=== PATIENT | female | born 2000 | race African-American/Black ===

== ENCOUNTER 2019-08-30 18:00 | Emergency (ER) | payer OTHER ==
[2019-08-30 18:12] VITALS: BP 104/67
--- NOTE | 2019-08-30 18:26 | ED Physician Documentation ---
PD HPI LOWER EXT INJURY - Stated complaint Stated Complaint: LT KNEE INJURY - Chief complaint Chief Complaint: Trauma Ext - History obtained from History obtained from: Patient - History of Present Illness PD HPI LOW EXT INJURY LOCATION: Left (19-year-old woman with history of left knee patellar dislocation. Last night she came off a few steps and landed and heard a pop in her left knee. She has no pain at rest but has persistent posterior and lateral knee pain with walking. No other injuries. No possibility of .) Review of Systems Constitutional: reports: Reviewed and negative Nose: reports: Reviewed and negative Throat: reports: Reviewed and negative Cardiac: reports: Reviewed and negative Respiratory: reports: Reviewed and negative PD PAST MEDICAL HISTORY - Present Medications Home Medications: Ambulatory Orders Medication Instructions Recorded Confirmed Ibuprofen [Motrin] 800 mg PO Q8H PRN #30 tablet 08/30/19 - Allergies Allergies/Adverse Reactions: Allergies Allergy/AdvReac Type Severity Reaction Status Date / Time No Known Drug Allergies Allergy Verified 08/30/19 18:09 PD ED PE NORMAL - Vitals Vital signs reviewed: Yes - General General: Alert and oriented X 3, No acute distress - Extremities Extremities: Other (Left knee has a tiny effusion, no bony tenderness, but she does have pain with grind testing on the lateral side. ACL, PCL, LCL, MCL joshua ting is nontender and without laxity.) - Neuro Neuro: Alert and oriented X 3, Normal speech - Psych Psych: Normal mood, Normal affect Results - Vitals Vitals: Vital Signs - 24 hr 08/30/19 18:09 Temperature 37 C Heart Rate 78 Respiratory 17 Rate Blood Pressure 104/67 O2 Saturation 100 Oxygen O2 Source Room air PD MEDICAL DECISION MAKING - ED course ED course: 19-year-old woman, isolated left knee injury from a minor mechanism, seems consistent with either a strain or potentially a little meniscus injury. X-rays were negative. She was placed in a knee immobilizer and advised on follow-up. Departure - Departure Disposition: 01 Home, Self Care Clinical Impression: Left knee sprain Qualifiers: Encounter type: initial encounter Involved ligament of knee: unspecified ligament Qualified Code(s): S83.92XA - Sprain of unspecified site of left knee, initial encounter Condition: Good Record reviewed to determine appropriate education?: Yes Instructions: ED Meniscal Injury Knee Poss Prescriptions: Ibuprofen [Motrin] 800 mg PO Q8H PRN #30 tablet PRN Reason: PAIN &/OR FEVER Comments: Your x-ray is normal. As discussed your examination could be consistent with a mild injury of your meniscus. Most of these heal with just time. Wear the splint when you are up and around, you do not need to wear it in bed or while showering. 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 Forms: Activity restrictions Discharge Date/Time: 08/30/19 19:00
--- NOTE | 2019-08-30 18:58 | XRAY Report ---
Reason: knee injury Procedure Date: 08/30/2019 Accession Number: [id number] / [id number] Procedure: XR - Knee 4 View LT CPT Code: Final Report FULL RESULT: EXAM: LEFT KNEE RADIOGRAPHY EXAM DATE: 08/30/2019 06:28 PM. CLINICAL HISTORY: Fall. Left knee pain. Left knee injury. COMPARISON: None. TECHNIQUE: 4 views. FINDINGS: Bones: Normal. No fractures or bone lesions. Joints: Possible small left knee effusion. No dislocation. Soft Tissues: No radiopaque foreign bodies. IMPRESSION: 1. No acute osseous abnormalities. RADIA
== END 2019-08-30 19:00 | disposition home or self-care (01) ==
LOC: ED 18:00
DX: S83.92XA Sprain of unspecified site of left knee, initial encounter (principal); X50.1XXA Overexertion from prolonged static or awkward postures, initial encounter; Y93.01 Activity, walking, marching and hiking
CPT/HCPCS: 99283

== ENCOUNTER 2019-12-01 22:25 | Emergency (ER) | payer OTHER ==
[2019-12-01 23:02] LABS: BILIRUBIN,URINE NEGATIVE (NEGATIVE); GLUCOSE, URINE (UA) NEGATIVE (NEGATIVE); KETONES,URINE (UA) TRACE mg/dL (NEGATIVE); LEUKOCYTE ESTERASE, URINE NEGATIVE (NEGATIVE); NITRITE,URINE NEGATIVE (NEGATIVE); OCCULT BLOOD,URINE NEGATIVE (NEGATIVE); PROTEIN,URINE NEGATIVE (NEGATIVE); UROBILINOGEN,URINE 0.2 (NORMAL) E.U./dL (NORMAL)
[2019-12-01 23:03] LABS: CLARITY,URINE CLEAR (CLEAR)
[2019-12-01 23:08] LABS: BACTERIA,URINE Rare /HPF (None Seen); RBC,URINE 0-5 /HPF (0-5); SQUAMOUS EPITHELIAL CELL,UR MANY Squamous (<= Few)
--- NOTE | 2019-12-01 23:26 | ED Physician Documentation ---
PD HPI ABD PAIN - Stated complaint Stated Complaint: ABD PX/NAUSEA - Chief complaint Chief Complaint: Abd Pain - History obtained from History obtained from: Patient - History of Present Illness Timing - onset: How many days ago (3) Timing - duration: Days (3) Timing - details: Gradual onset, Still present, Constant Pain level now: 4 Quality: Pain Location: All over / everywhere Radiation: No: Chest, , Lower back, Left flank, Left shoulder, Right flank, Right shoulder, Upper back Improved by: Laying still Worsened by: Palpation Associated symptoms: Nausea. No: Fever, Vomiting, Diarrhea, Constipation, Dysuria Similar symptoms before: Has not had sx before Recently seen: Clinic (evaluated at [facility] 3 days ago,) Review of Systems Constitutional: reports: Reviewed and negative Cardiac: reports: Reviewed and negative Respiratory: reports: Reviewed and negative GI: reports: Abdominal Pain, Nausea. denies: Vomiting, Constipation, Diarrhea : denies: Dysuria, Frequency, Now EGA PD PAST MEDICAL HISTORY - Past Medical History Past Medical History: No - Past Surgical History Past Surgical History: No - Present Medications Home Medications: Ambulatory Orders Medication Instructions Recorded Confirmed Ibuprofen [Motrin] 800 mg PO Q8H PRN #30 tablet 08/30/19 - Allergies Allergies/Adverse Reactions: Allergies Allergy/AdvReac Type Severity Reaction Status Date / Time No Known Drug Allergies Allergy Verified 12/01/19 22:34 - Social History Does the pt smoke?: No Smoking Status: Never smoker Does the pt drink ETOH?: No Does the pt have substance abuse?: No - Immunizations Immunizations are current?: No - POLST Patient has POLST: No PD ED PE NORMAL - Vitals Vital signs reviewed: Yes - General General: Alert and oriented X 3, No acute distress, Well developed/nourished - HEENT HEENT: Moist mucous membranes - Cardiac Cardiac: RRR, No murmur, No gallop, No rub - Respiratory Respiratory: No respiratory distress, Clear bilaterally - Abdomen Abdomen: Normal bowel sounds, Soft, Non distended PD ED PE EXPANDED - Abdomen Abdomen: Tender to palpation (across lower abdomen, predominantly right lower quadrant). No: Guarding Results - Vitals Vitals: Oxygen O2 Source Room air - Labs Labs: Laboratory Tests 12/01/19 12/01/19 12/01/19 23:00 23:50 23:50 WBC 7.8 RBC 5.33 Hgb 11.1 L Hct 35.0 L MCV 65.7 L MCH 20.8 L MCHC 31.7 L RDW 19.1 H Plt Count 513 H MPV 9.8 Neut # (Auto) 4.4 Lymph # (Auto) 2.2 Maries # (Auto) 0.6 Eos # (Auto) 0.5 Baso # (Auto) 0.1 Absolute Nucleated RBC 0.00 Nucleated RBC % 0.0 Sodium 136 Potassium 3.8 Chloride 103 Carbon Dioxide 25 Anion Gap 8.0 BUN 11 Creatinine 0.7 Estimated GFR (MDRD) 129 Glucose 99 Calcium 9.2 Total Bilirubin 0.5 AST 18 ALT 12 Alkaline Phosphatase 40 L Total Protein 7.5 Albumin 4.2 Globulin 3.3 Albumin/Globulin Ratio 1.3 Lipase 37 Urine Color YELLOW Urine Clarity CLEAR Urine pH 6.0 Ur Specific [place] >=1.030 H Urine Protein NEGATIVE Urine Glucose (UA) NEGATIVE Urine Ketones TRACE Urine Occult Blood NEGATIVE Urine Nitrite NEGATIVE Urine Bilirubin NEGATIVE Urine Urobilinogen 0.2 (NORMAL) Ur Leukocyte Esterase NEGATIVE Urine RBC 0-5 Urine WBC 0-3 Ur Squamous Epith Cells MANY Squamous H Urine Bacteria Rare Urine Culture Comments NOT INDICATED Urine HCG, Qual NEGATIVE - Rads (name of study) CT A/P Radiology: Prelim report reviewed, See rad report PD MEDICAL DECISION MAKING - ED course Complexity details: reviewed results, re-evaluated patient, considered differential, d/w patient Departure - Departure Disposition: 01 Home, Self Care Clinical Impression: Abdominal pain Condition: Good Instructions: ED Abdominal Pain Unkn Cause Follow-Up: EMILE WILKINSON MD [Primary Care Provider] - Discharge Date/Time: 12/02/19 03:25
[2019-12-01] MEDS ORDERED: SODIUM CHLORIDE 0.9% 1,000 ML IV STA (23:41)
[2019-12-01] MEDS ORDERED: IOVERSOL 320 100 ML VIAL IVP ONE (23:58)
[2019-12-02 00:03] LABS: BASOPHILS # (AUTO) 0.1 10^3/uL (0.0-0.1); BASOPHILS % (AUTO) 0.9 %; EOSINOPHILS # (AUTO) 0.5 10^3/uL (0.0-0.7); EOSINOPHILS % (AUTO) 6.6 %; HGB - HEMOGLOBIN 11.1 g/dL (12.0-16.0); LYMPHOCYTES # (AUTO) 2.2 10^3/uL (1.5-3.5); LYMPHOCYTES % (AUTO) 28.6 %; MEAN CORPUSCULAR HEMOGLOBIN 20.8 pg (27.0-31.0); MEAN CORPUSCULAR HGB CONC 31.7 g/dL (32.0-36.0); MEAN CORPUSCULAR VOLUME 65.7 fL (81.0-99.0); MEAN PLATELET VOLUME 9.8 fL (7.9-10.8); MONOCYTES # (AUTO) 0.6 10^3/uL (0.0-1.0); MONOCYTES % (AUTO) 7.9 %; NEUTROPHILS # (AUTO) 4.4 10^3/uL (1.5-6.6); NEUTROPHILS % (AUTO) 55.7 %; PLT - PLATELET COUNT 513 10^3/uL (130-450); RED BLOOD COUNT 5.33 10^6/uL (4.20-5.40); RED CELL DISTRIBUTION WIDTH 19.1 % (12.0-15.0); WHITE BLOOD COUNT 7.8 x10^3/uL (4.8-10.8)
[2019-12-02 00:10] LABS: HCG UR QUAL NEGATIVE
[2019-12-02 00:11] LABS: ALBUMIN 4.2 g/dL (3.2-5.5); ALBUMIN/GLOBULIN RATIO 1.3 (1.0-2.2); BILIRUBIN,TOTAL 0.5 mg/dL (0.2-1.0); CALCIUM 9.2 mg/dL (8.5-10.3); CREATININE 0.7 mg/dL (0.4-1.0); TOTAL PROTEIN 7.5 g/dL (6.7-8.2)
[2019-12-02] MEDS ORDERED: IOVERSOL 320 100 ML VIAL IVP ONE (00:56)
--- NOTE | 2019-12-02 01:04 | CT Report ---
Reason: RLQ pain Procedure Date: 12/02/2019 Accession Number: [id number] / [id number] Procedure: CT - Abdomen/Pelvis W CPT Code: Final Report FULL RESULT: EXAM: CT ABDOMEN AND PELVIS EXAM DATE: 12/02/2019 12:47 AM. CLINICAL HISTORY: RLQ abdominal pain. COMPARISONS: None. TECHNIQUE: Routine helical CT imaging was performed through the abdomen and pelvis. IV contrast: Yes . Enteric contrast: No . Reconstructions: Coronal and sagittal. In accordance with CT protocol optimization, one or more of the following dose reduction techniques were utilized for this exam: automated exposure control, adjustment of mA and/or KV based on patient size, or use of iterative reconstructive technique. FINDINGS: Lung Bases: Unremarkable. Liver: Unremarkable. No suspicious masses. Gallbladder/Bile Ducts: Unremarkable. Spleen: Unremarkable. Pancreas: Unremarkable. Adrenal Glands: Unremarkable. Kidneys: Unremarkable. No suspicious masses or hydronephrosis. Peritoneal Cavity/Bowel: No bowel obstruction or inflammatory process seen. No free air or significant free fluid. No masses or adenopathy. The appendix is normal. Moderate right colonic stool burden. Pelvic Organs: Bladder, uterus, and adnexa appear unremarkable. Vasculature: No aneurysms or other significant abnormality. Bones: No significant abnormality. Other: None. IMPRESSION: 1. No acute inflammatory or obstructive process seen in the abdomen or pelvis. 2. Moderate right colonic stool burden. RADIA
[2019-12-02] MEDS ORDERED: KETOROLAC 30 MG/ML VIAL IVP STA (01:59)
[2019-12-02 03:07] VITALS: BP 101/59
== END 2019-12-02 03:25 | disposition home or self-care (01) ==
LOC: ED 22:25
DX: R10.9 Unspecified abdominal pain (principal)
CPT/HCPCS: 36415; 74177; 80053; 81001; 81025; 83690; 85025; 96361; 96374; 99284; Q9967; 81003; 87086

== ENCOUNTER 2020-05-21 17:01 | Emergency (ER) | payer OTHER ==
--- NOTE | 2020-05-21 18:58 | ED Physician Documentation ---
History of Present Illness - Stated complaint Stated Complaint: KNEE PX - Chief complaint Chief Complaint: Ext Problem - Additonal information Additional information: 20-year-old female presents the emergency department for persistent left knee pain. Seen in this emergency department for similar when she developed knee pain while running. At the time of initial ED evaluation the x-ray was negative. However she reports that over the last week she continues to have pain when she ambulates and often feels a popping in the medial knee. She does report a history of recurrent knee pain and trauma including patellar dislocation and a severe sprain when she was in high school. No fevers, no swelling. No falls Review of Systems Constitutional: denies: Fever, Chills Cardiac: denies: Chest pain / pressure, Palpitations Respiratory: denies: Dyspnea, Cough GI: denies: Abdominal Pain Skin: denies: Rash, Lesions, Laceration (s) Musculoskeletal: reports: Joint pain, Pain with weight bearing. 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 : None HEENT: None Psych: None Musculoskeletal: None Derm: None - Past Surgical History Past Surgical History: No - Present Medications Home Medications: Ambulatory Orders Medication Instructions Recorded Confirmed Meloxicam 15 mg PO DAILY PRN #20 tablet 05/15/20 - Allergies Allergies/Adverse Reactions: Allergies Allergy/AdvReac Type Severity Reaction Status Date / Time No Known Drug Allergies Allergy Verified 05/15/20 09:11 - Social History Does the pt smoke?: No Smoking Status: Never smoker Does the pt drink ETOH?: Yes Does the pt have substance abuse?: No - Immunizations Immunizations are current?: Yes - POLST Patient has POLST: No PD ED PE NORMAL - General General: Alert and oriented X 3, No acute distress - Cardiac Cardiac: RRR, No murmur - Respiratory Respiratory: No respiratory distress - Abdomen Abdomen: Normal bowel sounds - Extremities Extremities: No deformity, Normal ROM s pain, No edema. No: No tenderness to palpate (tenderness left medial knee with deep palpation. Mild laxity medial joint line. Normal felxion/extension. Antalgic gait but bears nearly full weight) Results - Vitals Vitals: Vital Signs - 24 hr 05/21/20 17:10 Temperature 37 C Heart Rate 81 Respiratory 16 Rate Blood Pressure 102/57 L O2 Saturation 99 Oxygen O2 Source Room air PD MEDICAL DECISION MAKING - ED course Complexity details: reviewed old records, considered differential, d/w patient ED course: 20-year-old female presents to the emergency department for reevaluation of left medial knee pain. Seen recently for similar when she developed knee pain after running. X-ray at that time was negative. At this time she has some mild laxity in the medial compartment though no effusion is present. I suspect that she has an impingement. I will recommend a follow-up with orthopedics. She may need MRI imaging in the future. Her ability to bear weight and gait improved markedly when she was given an wrap. I will continue to recommend rice precautions at home. Departure - Departure Disposition: 01 Home, Self Care Clinical Impression: Left medial knee pain Condition: Stable Instructions: MCL Sprain Follow-Up: [facility] [Provider Group] Comments: Please continue to wear the Tr bandage when you are up and out of bed during the day. I would like you to schedule a follow-up appointment with the orthopedics department. I think that you likely have some entrapment of the meniscus in your left knee. Please also make a follow-up appointment with the base physician. Return to the emergency department if you have fevers, suddenly severe different knee pain or redness and swelling.
[2020-05-21 19:10] VITALS: BP 110/64
== END 2020-05-21 19:10 | disposition home or self-care (01) ==
LOC: ED 17:01
DX: M25.562 Pain in left knee (principal)
CPT/HCPCS: 99282

== ENCOUNTER 2020-06-20 15:34 | Emergency (ER) | payer OTHER ==
--- NOTE | 2020-06-20 18:56 | ED Physician Documentation ---
History of Present Illness - Stated complaint Stated Complaint: LT UNDER ARM PX/FEMALE - Chief complaint Chief Complaint: General - History obtained from History obtained from: Patient - History of Present Illness Timing: How many weeks ago (1) Pain level max: 0 Pain level now: 0 - Additonal information Additional information: Patient states that she received a Nexplanon implant about 1 year ago. Has been having pain for the past week and states that the [place] base is not moving fast enough to remove it so she came to the emergency department to have it removed. No other complaints. 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 HEENT: None Psych: None Musculoskeletal: None Derm: None - Past Surgical History Past Surgical History: No - Present Medications Home Medications: Ambulatory Orders Medication Instructions Recorded Confirmed Meloxicam 15 mg PO DAILY PRN #20 tablet 05/15/20 - Allergies Allergies/Adverse Reactions: Allergies Allergy/AdvReac Type Severity Reaction Status Date / Time No Known Drug Allergies Allergy Verified 06/20/20 15:54 - Social History Does the pt smoke?: No Smoking Status: Never smoker Does the pt drink ETOH?: Yes Does the pt have substance abuse?: No - Immunizations Immunizations are current?: Yes - POLST Patient has POLST: No PD ED PE NORMAL - Vitals Vital signs reviewed: Yes - General General: Alert and oriented X 3, No acute distress - HEENT HEENT: Moist mucous membranes - Derm Derm: Warm and dry - Extremities Extremities: Other (Possible Nexplanon in the left upper arm. No signs of infection. No swelling. No redness.) - Neuro Neuro: Alert and oriented X 3 Results - Vitals Vitals: Oxygen O2 Source Room air PD MEDICAL DECISION MAKING - ED course Complexity details: considered differential, d/w patient ED course: Informed the patient that I did not remove Nexplanon implants. Recommend that she follow-up with her doctor for this. No emergency medical condition at this time. This document was made in part using voice recognition software. While efforts are made to proofread this document, sound alike and grammatical errors may occur. Departure - Departure Disposition: 01 Home, Self Care Clinical Impression: Nexplanon in place Condition: Good Follow-Up: [facility] [Provider Group] - Within 1 week Comments: You can follow-[place] with gynecology [place]planon. Discharge Date/Time: 06/20/20 19:01
[2020-06-20 19:01] VITALS: BP 120/68
== END 2020-06-20 19:01 | disposition home or self-care (01) ==
LOC: ED 15:34
DX: M79.622 Pain in left upper arm (principal); Z96.89 Presence of other specified functional implants
CPT/HCPCS: 99282

== ENCOUNTER 2020-06-23 07:42 | Outpatient (CLI) | payer OTHER ==
--- NOTE | 2020-06-23 09:55 | MRI Report ---
PROCEDURE: Knee LT W/O INDICATIONS: LT KNEE PAIN TECHNIQUE: Noncontrast sagittal PD fast spin echo and T2 fast spin echo with fat saturation, sagittal 3-D gradie nt sequence with fat saturation; coronal T1 spin echo and PD fast spin echo with fat saturation, and axial PD fast spin echo with fat saturation through the knee. COMPARISON: Plain films of the knee dated 05.15.20 FINDINGS: Image quality: Partially degraded by motion artifact. Menisci: Linear oblique high T2 signal intensity traverses the posterior horn medial meniscus, demons trating inferior articular surface extension, indicating oblique tearing. Linear oblique high signal intensity traverses the posterior horn lateral meniscus, demonstrating inferior articular surface ext ension, indicating oblique tearing. Cruciate ligaments: Posterior cruciate ligament is intact. Chronic full-thickness anterior cruciate l igament tearing is present. Medial structures: The medial collateral ligament appears intact. Visualized portions of the pes an serinus tendons appear normal. No abnormal bursal fluid. Lateral structures: The lateral collateral ligament, long and short heads of the biceps femoris tend on appear intact. The popliteus tendon appears . Iliotibial band appears normal. Anterior structures: The quadriceps and patellar tendons appear intact. Patellar alignment is betty l. No femoral trochlear dysplasia or ventral trochlear prominence. No edema in the infrapatellar fa t pad. Bones and cartilage: No bone marrow contusions or fractures. There is mild subchondral degenerative marrow edema within the posterior weightbearing aspect of the medial femoral condyle. There is modera te articular cartilage loss diffusely overlying the weightbearing aspects of the medial femoral condy le and medial tibial plateau, with superimposed high-grade articular cartilage loss overlying the pos terior weightbearing aspect of the medial femoral condyle, measuring roughly 6 mm anteroposterior. Mi ld diffuse articular cartilage loss overlies the weightbearing aspects of the lateral femoral condyle and lateral tibial plateau. Joint space: There is a small knee joint effusion and a small Costa?s cyst. Normal appearing synovi al plicae are incidentally noted. IMPRESSION: 1. Chronic full-thickness anterior cruciate ligament tear. 2. Medial and lateral meniscal tearing. 3. Tricompartmental osteoarthritis with associated articular cartilage loss. 4. Knee joint effusion and Costa's cyst. Reviewed by: Acacia Rg MD on 06/23/2020 9:54 AM PDT Approved by: Acacia Rg MD on 06/23/2020 9:54 AM PDT Station ID: [id number]
== END 2020-06-23 07:43 | disposition home or self-care (01) ==
LOC: DI 07:42
PROVIDERS: ATTEND Student in an Organized Health Care Education/Training Program
DX: S83.242A Other tear of medial meniscus, current injury, left knee, initial encounter (principal); S83.282A Other tear of lateral meniscus, current injury, left knee, initial encounter; S83.512A Sprain of anterior cruciate ligament of left knee, initial encounter; M17.12 Unilateral primary osteoarthritis, left knee; M25.462 Effusion, left knee; M71.22 Synovial cyst of popliteal space [Baker], left knee

== ENCOUNTER 2020-06-26 09:26 | Emergency (ER) | payer OTHER ==
--- NOTE | 2020-06-26 09:37 | ED Physician Documentation ---
PD HPI NVD - Stated complaint Stated Complaint: VOMITING - Chief complaint Chief Complaint: Abd Pain - History obtained from History obtained from: Patient - History of Present Illness Timing - onset: Yesterday Timing - duration: Days (1) Timing - details: Abrupt onset (onset 4 am yesterday with nausea, vomiting, and loose stools, with abd cramping. These all have continued in waves through day into today. No focal abd pain. She states a friend she ate dinner with at home the evening prior was having some abd cramps but no vomiting.) Associated symptoms: Abdominal pain, Loss of appetite, Other (general weakness and lightheaded today.). No: Fever, Hematemesis, Melena Contributing factors: Bad food (possibly). No: Sick contact, Travel, Recent antibiotics, Alcohol use, Diabetes Improved by: No: Vomiting Worsened by: Eating Similar symptoms before: Has not had sx before Review of Systems Constitutional: reports: Myalgias, Fatigue. denies: Fever, Chills Nose: denies: Rhinorrhea / runny nose, Congestion Throat: denies: Sore throat Respiratory: denies: Cough GI: reports: Abdominal Pain (crampy intermittent), Nausea, Vomiting, Diarrhea (loose but not fully watery). denies: Constipation : denies: Dysuria Neurologic: reports: Generalized weakness. 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 : None HEENT: None Psych: None Musculoskeletal: None Derm: None - Past Surgical History Past Surgical History: No - Present Medications Home Medications: Ambulatory Orders Medication Instructions Recorded Confirmed Meloxicam 15 mg PO DAILY PRN #20 tablet 05/15/20 Loperamide [Imodium] 2 mg PO QID PRN #12 capsule 06/26/20 Naproxen 375 mg PO TID #30 tablet 06/26/20 Ondansetron Odt [Zofran] 4 mg TL Q6H PRN #10 tablet 06/26/20 - Allergies Allergies/Adverse Reactions: Allergies Allergy/AdvReac Type Severity Reaction Status Date / Time No Known Drug Allergies Allergy Verified 06/26/20 09:32 - Social History Does the pt smoke?: No Smoking Status: Never smoker Does the pt drink ETOH?: Yes Does the pt have substance abuse?: No - Immunizations Immunizations are current?: Yes - POLST Patient has POLST: No PD ED PE NORMAL - Vitals Vital signs reviewed: Yes - General General: Alert and oriented X 3, No acute distress, Well developed/nourished - HEENT HEENT: Pharynx benign. No: Moist mucous membranes - Neck Neck: Supple, no meningeal sign, No adenopathy - Cardiac Cardiac: RRR, No murmur - Respiratory Respiratory: Clear bilaterally - Abdomen Abdomen: Normal bowel sounds, Soft, Non tender, Non distended, No organomegaly - Back Back: No CVA TTP - Derm Derm: Normal color, Warm and dry - Extremities Extremities: Normal ROM s pain - Neuro Neuro: Alert and oriented X 3, No motor deficit, Normal speech Results - Vitals Vitals: Vital Signs - 24 hr 06/26/20 06/26/20 09:28 11:27 Temperature 36.6 C 36.9 C Heart Rate 86 75 Respiratory 18 16 Rate Blood Pressure 124/76 106/63 O2 Saturation 100 100 Oxygen O2 Source Room air - Labs Labs: Laboratory Tests 06/26/20 06/26/20 10:30 11:21 Sodium 137 Potassium 3.9 Chloride 101 Carbon Dioxide 27 Anion Gap 9.0 BUN 13 Creatinine 0.8 Estimated GFR (MDRD) 110 Glucose 93 Calcium 9.4 Total Bilirubin 0.9 AST 16 ALT 12 Alkaline Phosphatase 44 Total Protein 8.0 Albumin 4.5 Globulin 3.5 Albumin/Globulin Ratio 1.3 Lipase 31 Urine Color YELLOW Urine Clarity CLEAR Urine pH 7.0 Ur Specific [place] 1.015 Urine Protein NEGATIVE Urine Glucose (UA) NEGATIVE Urine Ketones NEGATIVE Urine Occult Blood NEGATIVE Urine Nitrite NEGATIVE Urine Bilirubin NEGATIVE Urine Urobilinogen 0.2 (NORMAL) Ur Leukocyte Esterase NEGATIVE Ur Microscopic Review NOT INDICATED Urine Culture Comments NOT INDICATED Urine HCG, Qual NEGATIVE PD MEDICAL DECISION MAKING - ED course Complexity details: re-evaluated patient (feeling better with IV fluids and meds. ), considered differential (seems food related or viral type. Less likely bacterial enteritis. No focal abd pain. Does not seem like appendix nor gallbladder. ), d/w patient Departure - Departure Disposition: 01 Home, Self Care Clinical Impression: Nausea vomiting and diarrhea Condition: Stable Record reviewed to determine appropriate education?: Yes Instructions: ED Food Poison Or Gastroenteritis Follow-Up: JAJA,EMILE, MD [Primary Care Provider] - Prescriptions: Loperamide [Imodium] 2 mg PO QID PRN #12 capsule PRN Reason: Diarrhea Naproxen 375 mg PO TID #30 tablet Ondansetron Odt [Zofran] 4 mg TL Q6H PRN #10 tablet PRN Reason: Nausea / Vomiting Comments: He was small frequent fluids and bland food initially. Hopefully will be feeling better through the day today and into tomorrow. Most illnesses like this are a couple of days in duration. If symptoms persist or the diarrhea persists beyond a couple more days, follow- up with your primary. Return if worsening to the ER. Ondansatron if needed for nausea and Imodium if needed for diarrhea. Add Tylenol or naproxen if needed for cramps and pains. Rest off work today and possibly tomorrow if needed. Forms: Activity restrictions Discharge Date/Time: 06/26/20 12:10
[2020-06-26] MEDS ORDERED: KETOROLAC 15 MG/ML VIAL IVP STA (10:06)
[2020-06-26] MEDS ORDERED: DIPHENOX/ATROPINE 2.5/0.025 MG TABLET PO STA (10:06)
[2020-06-26] MEDS ORDERED: SODIUM CHLORIDE 0.9% 1,000 ML IV STA (10:06)
[2020-06-26] MEDS ORDERED: ONDANSETRON 4 MG/2 ML VIAL IVP STA (10:06)
[2020-06-26 11:00] LABS: ALBUMIN 4.5 g/dL (3.2-5.5); ALBUMIN/GLOBULIN RATIO 1.3 (1.0-2.2); BILIRUBIN,TOTAL 0.9 mg/dL (0.2-1.0); CALCIUM 9.4 mg/dL (8.5-10.3); CREATININE 0.8 mg/dL (0.4-1.0)
[2020-06-26 11:27] LABS: BILIRUBIN,URINE NEGATIVE (NEGATIVE); GLUCOSE, URINE (UA) NEGATIVE (NEGATIVE); KETONES,URINE (UA) NEGATIVE (NEGATIVE); LEUKOCYTE ESTERASE, URINE NEGATIVE (NEGATIVE); NITRITE,URINE NEGATIVE (NEGATIVE); OCCULT BLOOD,URINE NEGATIVE (NEGATIVE); PROTEIN,URINE NEGATIVE (NEGATIVE); UROBILINOGEN,URINE 0.2 (NORMAL) E.U./dL (NORMAL)
[2020-06-26 11:29] VITALS: BP 106/63
[2020-06-26 11:29] LABS: CLARITY,URINE CLEAR (CLEAR)
[2020-06-26 11:30] LABS: HCG UR QUAL NEGATIVE
== END 2020-06-26 12:10 | disposition home or self-care (01) ==
LOC: ED 09:26
DX: R11.2 Nausea with vomiting, unspecified (principal); R19.7 Diarrhea, unspecified
CPT/HCPCS: 36415; 80053; 81003; 81025; 83690; 96361; 96374; 96375; 99284; A9270; 81001; 87086

== ENCOUNTER 2020-09-23 06:29 | Day surgery (SDC) | payer OTHER ==
[~2020-09-23 06:29] MED LIST: ceFAZolin 2 GM/50 ML 2 GM/50 ML BAG IV ONE
[2020-09-23] MEDS ORDERED: LACTATED RINGERS 1,000 ML IV ONE ×2 (06:34→10:32)
[2020-09-23 06:49] LABS: HCG UR QUAL NEGATIVE
[2020-09-23] MEDS ORDERED: PROPOFOL 200 MG/20 ML VIAL IVP ONE (06:51)
[2020-09-23] MEDS ORDERED: LIDOCAINE-MPF 2% 5 ML VIAL ONE (06:51)
[2020-09-23] MEDS ORDERED: KETOROLAC 30 MG/ML VIAL ONE (06:52)
[2020-09-23] MEDS ORDERED: ONDANSETRON 4 MG/2 ML VIAL ONE (06:52)
[2020-09-23] MEDS ORDERED: DEXAMETHASONE 4 MG/ML VIAL ONE (06:52)
[2020-09-23] MEDS ORDERED: fentaNYL 100 MCG/2 ML VIAL ONE ×3 (07:10→09:11)
[2020-09-23] MEDS ORDERED: MIDAZOLAM 2 MG/2 ML VIAL ONE (07:10)
[2020-09-23] MEDS ORDERED: EPINEPHrine 1 MG/ML AMP ONE (07:20)
[2020-09-23] MEDS ORDERED: BUPIVACAINE 0.25% PF 30 ML VIAL ONE (07:20)
--- NOTE | 2020-09-23 07:32 | ANESTHESIA ---
Pre-Anesthesia VS, & Labs - Diagnosis Left Knee ACL and Meniscus Tear - Procedure Left Knee Scope and Ant Cruciate Repair Vital Signs: Temp Pulse Resp BP Pulse Ox 36.5 C 85 12 135/70 H 98 09/23/20 06:46 09/23/20 06:46 09/23/20 06:46 09/23/20 06:46 09/23/20 06:46 Height: 5 ft 2 in Weight (kg): 72.57 kg Body Mass Index: 29.2 BMI Classification: Overweight - NPO >8 hours - Is Patient ?: No - Lab Results Lab results reviewed: Yes Home Medications and Allergies Home Medications: Ambulatory Orders No Known Home Medications 09/16/20 No Known Home Medications 09/16/20 Allergies/Adverse Reactions: Allergies Allergy/AdvReac Type Severity Reaction Status Date / Time No Known Drug Allergies Allergy Verified 06/26/20 09:32 Anes History & Medical History - Anesthetic History Anesthesia Complications: reports: No previous complications (Only had wisdon teeth out under sedation. No problems.) Family history of Anesthesia Complications: Denies Family history of Malignant Hyperthermia: Denies - Medical History Cardiovascular: reports: None Pulmonary: reports: None Gastrointestinal: reports: None Urinary: reports: None Neuro: reports: None Musculoskeletal: reports: Other Endocrine/Autoimmune: reports: None Blood Disorders: reports: None Skin: reports: None Smoking Status: Never smoker Exam General: Alert, Oriented x3, Cooperative, No acute distress Dental: WNL Mouth Opening: Greater than 4 Fingerbreadths Neck Mobility: Normal Mallampati classification: I Thyromental Distance: 4-6 cm Respiratory: Lungs clear Cardiovascular: Regular rate Plan Anesthesia Type: General, Adductor Block Regional Block: Per Surgeon's request for Post Op pain control Consent for Procedure(s) Verified and Reviewed: Yes Code Status: Attempt Resuscitation ASA classification: 1-Healthy patient Is this case an emergency?: No (Discussed anesthetic plan, Consent signed)
[2020-09-23] MEDS ORDERED: ePHEDrine 50 MG/ML VIAL IVP PRN (07:33)
[2020-09-23] MEDS ORDERED: NALOXONE 0.4 MG/ML VIAL IVP PRN (07:33)
[2020-09-23] MEDS ORDERED: fentaNYL 100 MCG/2 ML VIAL IVP PRN (07:33)
[2020-09-23] MEDS ORDERED: ATROPINE ABBOJECT 1 MG/10 ML SYRINGE IVP PRN (07:33)
[2020-09-23] MEDS ORDERED: METOCLOPRAMIDE 10 MG/2 ML VIAL IVP PRN (07:33)
[2020-09-23] MEDS ORDERED: MORPHINE 2 MG/ML CARPUJECT IVP PRN (07:33)
[2020-09-23] MEDS ORDERED: ONDANSETRON 4 MG/2 ML VIAL IVP PRN ×2 (07:33→10:39)
[2020-09-23] MEDS ORDERED: EPINEPHrine 1 MG/ML AMP IVP ONE (07:47)
[2020-09-23] MEDS ORDERED: BUPIVACAINE 0.25% PF 30 ML VIAL SUBQ ONE ×2 (07:48→10:18)
[2020-09-23] MEDS ORDERED: LACTATED RINGERS 1,000 ML IV SCH (08:00)
[2020-09-23] MEDS ORDERED: BACITRACIN 50,000 UNIT VIAL IM ONE (08:45)
[2020-09-23] MEDS ORDERED: BACITRACIN 50,000 UNIT VIAL ONE (08:48)
[2020-09-23] MEDS ORDERED: SODIUM CHLORIDE 0.9% 10 ML ONE (08:50)
[2020-09-23] MEDS ORDERED: ROPIVACAINE 0.5% PF 20 ML AMPULE ONE (10:13)
[2020-09-23] MEDS: HYDROmorphone 0.5 MG/0.5 ML SYRINGE IVP PRN ×4 (10:38→10:48)
[2020-09-23] MEDS ORDERED: oxyCODONE 5 MG TABLET PO PRN (10:39)
[2020-09-23] MEDS ORDERED: HYDROmorphone 1 MG/ML CARPUJECT ONE (10:45)
--- NOTE | 2020-09-23 10:49 | OPERATIVE REPORT ---
Operative Report - Other Other Information/Narrative: Date of Surgery: 23 September 2020 Pre-Op Diagnosis: Left ACL tear. Left medial meniscus tear. Left lateral meniscus tear. Left medial femoral condyle cartilage injury Procedure: Left knee arthroscopy with medial femoral condyle chondroplasty, lateral meniscus debridement, ACL reconstruction with hamstring autograft and allograft augmentation Postop Diagnosis: Same Primary Surgeon: Iglesia Palafox Secondary Surgeon: None Complications: None Tourniquet Time: 132 minutes EBL: 50 cc Implants: Arthrex Tightrope. Arthrex 9 mm Graftbolt. Gracilis allograft augmentation Graft & Tunnel Size: 8 mm Postoperative Protocol: Routine ACL reconstruction. Indication For Surgery: 20-year-old female who injured her knee 4 years ago and since that time has had instability and some pain but was unable to do any dynamic activities. She had another injury in April 2020 while running [place] a trail. Evaluation and MRI showed the ACL tear, partial tear of the medial root, and lateral meniscus tear. We discussed the goals of surgery and she decided to move forward. The risks, benefits, and alternatives were discussed. Risks include pain, bleeding, infection, damage to nearby structures and cartilage, lack of symptom relief, need for further surgery, DVT, PE, stroke, and . Written consent was obtained. Examination Under Anesthesia: ROM equal to the contralateral side. Stable dial at 30 & 90 degrees. Stable to varus and valgus stressing at 0 & 30 degrees. 2 mondragon Ike. Grossly abnormal Pivot shift. No mechanical sensation Diagnostic Arthroscopy: No loose bodies. Synovium was exuberant anteriorly and this was debrided. Patella cartilage did not show any full-thickness lesions or partial-thickness lesions. Trochlear cartilage was normal. Medial femoral condyle cartilage showed diffuse damage with a large area of full-thickness fissuring that measured 12 mm wide and 15 mm long in the weightbearing area, this was debrided back to a stable base. Medial tibial plateau cartilage showed grade 2 changes and a large area. Medial meniscus showed a partial tear back at the posterior root but a probe placed under the meniscus was unable to slide into the notch, indicating that a functional attachment remained. Using Gillquist maneuver I looked at the medial meniscus root and there was a partial tear but I do not think a repair or advancement would have been possible or helpful. ACL was absent. PCL was normal. Lateral femoral condyle cartilage was normal. Lateral tibial plateau cartilage was normal. Lateral meniscus showed a complex horizontal tear of the posterior horn starting at the root with a flipped fragment into the lateral joint. The root itself had good attachments in the superior and inferior leaflet of the lateral meniscus remained stable so I made the decision to leave as much meniscus as possible. The parrot-beak fragment was excised. Procedure in Detail: The patient was met in the pre-operative hold area on the day of the procedure. The operative extremity was signed and questions were a nswered. The patient was brought to the operating room and a general anesthetic was administered. Supine position was used and bony prominences were padded. An examination under anesthesia was performed. Standard prepping and draping was performed. A time out confirmed patient identification, laterality, procedure, allergies, antibiotics, and images. An Esmarch was used to exsanguinate the limb and the tourniquet was elevated to 250 mmHg. Hamstring Graft [place]: A 4 cm incision was made over the insertion of the pes anserine. Hemostasis was obtained with electrocautery. Dissection was brought down to the sartorial fascia and this was cleared off with a sponge. A partial thickness incision was made in the sartorial fascia 5mm proximal to and in line with the gracilis tendon, taking care to not disrupt the superficial medial collateral ligament. A full thickness longitudinal incision was made down to bone, releasing the pes anserine. I then identified the interval between the hamstring tendons and the medial collateral ligament. This interval was exploited and the hamstrings were viewed on the underside of the sartorial fascia. A right angle clamp was used to separate the gracilis tendon from the sartorial fascia and it was released sharply with a knife. I then whip stitched the tendon with 4 bites up and down. I then freed the tendon from all fascial attachments back to the hiatus. A closed tendon stripper was then used to harvest the gracilis tendon and it was brought to the back table. The procedure was repeated for the semitendinosis tendon. The graft was then prepped on the back table. The graft only measured 6 mm but did have adequate length. I therefore thought out a gracilis allograft and once folded over all the grafts together measured 8 mm. I was satisfied with this and placed it all on tension. A standard diagnostic arthroscopy of the knee was performed through anterolateral and anteromedial portal sites. The anteromedial portal was created under direct visualization after localizing with a spinal needle. The findings can be found above. I then proceeded to use a shaver to debride the synovium anteriorly for visualization. I debrided the lateral meniscus until it had a stable base. I then used a shaver to debride unstable portions of the medial femoral condyle cartilage. ACL Prep: I then used a sucker shaver and a radiofrequency ablation wand to release all residual ACL tissue off of the lateral wall. I debrided all excess tissue from the notch. I placed the camera into the anteromedial portal and ensured that I was cleared all the way to the back wall. I then brought the flip cutter aiming device through the lateral portal. I positioned into the central position of the [place] ACL footprint on the femur ensuring to leave a 2 mm back wall and stay off of the distal articular cartilage. Once satisfied with the position, the bullet was brought down to the skin and a hubert was made. A 3 cm longitudinal skin incision was made and the IT band was split in line with its fibers. A sen rake was used to retract the IT band posterior and the bullet was brought down to the lateral femoral wall. An appropriately sized flip cutter was then drilled into the notch. It was then flipped and the lateral wall was scored confirming an appropriate position. The bullet was then malleted into place and a 25mm femoral tunnel was drilled. Bony debris was removed with a shaver. A fiberstick suture was brought into the joint, retrieved out the lateral portal, and clamped to itself. I then identified the ACL footprint on the tibia and set the tibial guide at 55. I aimed to have the guide pin come out 7 mm anterior to the PCL and in line with the posterior borders of the anterior horn of the lateral meniscus, on the lateral border of the medial tibial spine. The guidewire was then brought into the joint. The knee was then straightened to confirm that it would not impinge on the notch. The guidewire was clamped with a Chad. The skin was then protected and the tibial tunnel was drilled with the appropriate sized reamer. The fiberwire was then brought through the tibial tunnel. The graft was then loaded onto the tightrope and the graft was marked at 25mm. The graft was then passed and the button was brought out of the skin over the lateral femur. I then guided the button back down beneath the IT band and visualized it on the lateral femoral cortex. I then held tension on the graft and advanced it by pulling on the white tightrope sutures. The marking on the graft disappeared into the femoral tunnel and seated nicely. The knee was then cycled 20 times with tension on the graft. I then placed a large bump under the distal femur the pulled on all 4 limbs of the graft and placed a posterior drawer on to the proximal tibia. The guidewire was then placed into the tibia and the tunnel was dialated until a tight fit was seen. The graftbolt was then placed. I then brought the arthroscope back into the joint and probed the graft finding it to have excellent tension. Final images were taken. Excess graft was then cut and the wounds were irrigated copiously. I closed the sartorial fascia and IT band with 0 Vicryl, the subdermal tissues with 2 O Vicryl, and the skin with running Monocryl. Steri-Strips were applied and 20 cc of 0.5% Marcaine was placed under the incisions. The tourniquet was then dropped and a sterile dressing was placed. The ROM brace was placed and was locked out in full extension. He was awakened and transferred to the recovery room.
[2020-09-23] MEDS ORDERED: oxyCODONE 5 MG TABLET ONE (11:04)
[2020-09-23 11:38] VITALS: BP 126/65
--- NOTE | 2020-09-23 11:56 | ANESTHESIA POST OP EVALUATION ---
Anesthesia Post Eval - Post Anesthesia Eval Vitals: Last Vital Signs Temp 36.1 C L 09/23/20 11:36 Pulse 88 09/23/20 11:36 Resp 12 09/23/20 11:36 BP 126/65 09/23/20 11:36 Pulse Ox 98 09/23/20 11:36 CV Function Including HR & BP: positive: Stable Pain Control: positive: Satisfactory Nausea & Vomiting: positive: Negative Mental Status: positive: Baseline Respiratory Status: Airway Patent Hydration Status: Satisfactory Anesthesia Complications: positive: None (Patient awake, alert, comfortable. Being discharged.)
== END 2020-09-23 06:30 | disposition home or self-care (01) ==
LOC: SDS 06:29
PROVIDERS: ATTEND Orthopaedic Surgery
DX: S83.512A Sprain of anterior cruciate ligament of left knee, initial encounter (principal); S83.272A Complex tear of lateral meniscus, current injury, left knee, initial encounter; S83.242A Other tear of medial meniscus, current injury, left knee, initial encounter; M23.92 Unspecified internal derangement of left knee; E66.3 Overweight; Z68.29 Body mass index [BMI] 29.0-29.9, adult
CPT/HCPCS: 81025

== ENCOUNTER 2021-06-16 10:18 | Emergency (ER) | payer OTHER ==
[2021-06-16] MEDS ORDERED: diphenhydrAMINE INJ 50 MG/ML VIAL IVP STA (10:39)
[2021-06-16] MEDS ORDERED: KETOROLAC 15 MG/ML VIAL IVP STA (10:39)
[2021-06-16] MEDS ORDERED: METOCLOPRAMIDE 10 MG/2 ML VIAL IVP STA (10:39)
--- NOTE | 2021-06-16 10:40 | ED Physician Documentation ---
PD HPI HEADACHE - Stated complaint Stated Complaint: HEAD ACHE,N/V - Chief complaint Chief Complaint: Neuro - History obtained from History obtained from: Patient - Additional information Additional information: 21-year-old woman with infrequent occasional migraines presents with her typical right-sided frontal throbbing headache with mild photophobia over the last 3 days which has been unresponsive to naproxen. Has not tried anything else for it. No associated fevers or neck stiffness. Review of Systems Constitutional: denies: Fever, Chills Cardiac: denies: Chest pain / pressure, Palpitations Respiratory: denies: Dyspnea, Cough PD PAST MEDICAL HISTORY - Past Medical History Cardiovascular: None Respiratory: None Neuro: None Endocrine/Autoimmune: None GI: None GIS MANAGER: None : None HEENT: None Psych: None Musculoskeletal: Other Derm: None - Past Surgical History Past Surgical History: No - Present Medications Home Medications: Ambulatory Orders Medication Instructions Recorded Confirmed SUMAtriptan [Imitrex] 25 mg PO BID PRN #10 tablet 06/16/21 - Allergies Allergies/Adverse Reactions: Allergies Allergy/AdvReac Type Severity Reaction Status Date / Time No Known Drug Allergies Allergy Verified 06/16/21 10:29 - Social History Does the pt smoke?: No Smoking Status: Never smoker Does the pt drink ETOH?: Yes Does the pt have substance abuse?: No - Immunizations Immunizations are current?: Yes - POLST Patient has POLST: No PD ED PE NORMAL - Vitals Vital signs reviewed: Yes - General General: Alert and oriented X 3, No acute distress - Neck Neck: Supple, no meningeal sign, No bony TTP - Neuro Neuro: Alert and oriented X 3, No motor deficit, No sensory deficit, Normal speech Results - Vitals Vitals: Vital Signs - 24 hr 06/16/21 10:22 Temperature 36.6 C Heart Rate 73 Respiratory 18 Rate Blood Pressure 112/61 O2 Saturation 100 Oxygen O2 Source Room air PD MEDICAL DECISION MAKING - ED course ED course: 21-year-old woman with benign sounding headache. After the administration of Reglan, Toradol, Benadryl IV her headache resolved. Departure - Departure Disposition: 01 Home, Self Care Clinical Impression: Migraine Condition: Good Record reviewed to determine appropriate education?: Yes Instructions: ED Headache Migraine, Imitrex Prescriptions: SUMAtriptan [Imitrex] 25 mg PO BID PRN #10 tablet PRN Reason: Headache Comments: Call your doctor to arrange a follow-up appointment, make the next available appointment. In the interim, return anytime if worse or if new symptoms develop. Forms: Activity restrictions
[2021-06-16 12:08] VITALS: BP 114/65
== END 2021-06-16 12:08 | disposition home or self-care (01) ==
LOC: ED 10:18
DX: G43.909 Migraine, unspecified, not intractable, without status migrainosus (principal)
CPT/HCPCS: 96374; 96375; 99283; J1200; J2765

== ENCOUNTER 2021-11-03 12:20 | Emergency (ER) | payer OTHER ==
[2021-11-03 12:53] VITALS: BP 123/69
[2021-11-03 13:09] LABS: BILIRUBIN,URINE NEGATIVE (NEGATIVE); GLUCOSE, URINE (UA) NEGATIVE (NEGATIVE); KETONES,URINE (UA) NEGATIVE (NEGATIVE); LEUKOCYTE ESTERASE, URINE NEGATIVE (NEGATIVE); NITRITE,URINE NEGATIVE (NEGATIVE); OCCULT BLOOD,URINE TRACE-INTA (NEGATIVE); PROTEIN,URINE NEGATIVE (NEGATIVE); UROBILINOGEN,URINE 0.2 (NORMAL) E.U./dL (NORMAL)
[2021-11-03 13:14] LABS: CLARITY,URINE CLEAR (CLEAR); HCG UR QUAL NEGATIVE
[2021-11-03 13:23] LABS: BASOPHILS % (AUTO) 0.4 %; EOSINOPHILS # (AUTO) 0.1 10^3/uL (0.0-0.7); EOSINOPHILS % (AUTO) 1.6 %; HCT - HEMATOCRIT 37.9 % (37.0-47.0); HGB - HEMOGLOBIN 12.5 g/dL (12.0-16.0); LYMPHOCYTES # (AUTO) 1.4 10^3/uL (1.5-3.5); LYMPHOCYTES % (AUTO) 20.2 %; MEAN CORPUSCULAR HEMOGLOBIN 22.4 pg (27.0-31.0); MEAN CORPUSCULAR VOLUME 67.9 fL (81.0-99.0); MEAN PLATELET VOLUME 9.9 fL (7.9-10.8); MONOCYTES # (AUTO) 0.4 10^3/uL (0.0-1.0); MONOCYTES % (AUTO) 6.2 %; NEUTROPHILS % (AUTO) 71.5 %; PLT - PLATELET COUNT 368 10^3/uL (130-450); RED BLOOD COUNT 5.58 10^6/uL (4.20-5.40); RED CELL DISTRIBUTION WIDTH 18.3 % (12.0-15.0); WHITE BLOOD COUNT 6.9 x10^3/uL (4.8-10.8)
[2021-11-03] MEDS ORDERED: ONDANSETRON ODT 4 MG TABLET TL STA (13:24)
[2021-11-03 13:26] LABS: SLIDE REVIEW? Indicated
[2021-11-03 13:38] LABS: ALBUMIN 4.1 g/dL (3.2-5.5); ALBUMIN/GLOBULIN RATIO 1.2 (1.0-2.2); BILIRUBIN,TOTAL 0.7 mg/dL (0.2-1.0); CALCIUM 8.8 mg/dL (8.5-10.3); CREATININE 0.7 mg/dL (0.4-1.0); POTASSIUM 3.9 mmol/L (3.5-5.0); TOTAL PROTEIN 7.5 g/dL (6.7-8.2)
[2021-11-03 13:49] LABS: PLATELET ESTIMATE, MANUAL NORMAL (130-450,000) (NORMAL); PLATELET MORPHOLOGY NORMAL APPEARANCE (NORMAL); RBC MORPHOLOGY (MULTIPLE) 3+ MICROCYTOSIS (NORMAL)
--- NOTE | 2021-11-03 14:11 | ED Physician Documentation ---
PD HPI NVD - Stated complaint Stated Complaint: N/V - Chief complaint Chief Complaint: Abd Pain - History obtained from History obtained from: Patient - History of Present Illness Timing - onset: Last night Timing - duration: Days (1) Timing - details: Abrupt onset, Still present Associated symptoms: Abdominal pain Contributing factors: Bad food. No: Sick contact Improved by: Vomiting Similar symptoms before: Has not had sx before Recently seen: Not recently seen - Additonal information Additional information: Previously well 21-year-old female developed some nausea last night after eating and when she had symptoms again this morning she has come to the emergency department. She woke up in a pool of sweat and then vomited this morning. Review of Systems Constitutional: denies: Fever Eyes: denies: Decreased vision Ears: denies: Ear pain Nose: denies: Congestion Throat: denies: Sore throat Cardiac: denies: Chest pain / pressure Respiratory: denies: Dyspnea GI: reports: Nausea, Vomiting. 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 : None HEENT: None Psych: None Musculoskeletal: Other Derm: None - Past Surgical History Past Surgical History: No - Present Medications Home Medications: Ambulatory Orders Medication Instructions Recorded Confirmed Ondansetron Odt [Zofran] 4 mg TL Q6H PRN #10 tablet 11/03/21 - Allergies Allergies/Adverse Reactions: Allergies Allergy/AdvReac Type Severity Reaction Status Date / Time No Known Drug Allergies Allergy Verified 11/03/21 12:48 - Social History Does the pt smoke?: No Smoking Status: Never smoker Does the pt drink ETOH?: Yes Does the pt have substance abuse?: No - Immunizations Immunizations are current?: Yes - POLST Patient has POLST: No PD ED PE NORMAL - Vitals Vital signs reviewed: Yes (normal ) - General General: Alert and oriented X 3, No acute distress, Well developed/nourished - HEENT HEENT: Atraumatic, PERRL, EOMI - Neck Neck: Supple, no meningeal sign, No bony TTP - Cardiac Cardiac: RRR, No murmur - Respiratory Respiratory: No respiratory distress, Clear bilaterally - Abdomen Abdomen: Normal bowel sounds, Soft, Non tender, Non distended, No organomegaly - Back Back: No CVA TTP, No spinal TTP - Derm Derm: Normal color, Warm and dry, No rash - Extremities Extremities: No deformity, No edema - Neuro Neuro: Alert and oriented X 3, writing tutor 2-12 intact, No motor deficit, No sensory deficit, Normal speech Eye Opening: Spontaneous Motor: Obeys Commands Verbal: Oriented GCS Score: 15 - Psych Psych: Normal mood, Normal affect Results - Vitals Vitals: Vital Signs - 24 hr 11/03/21 11/03/21 12:48 13:08 Temperature 36.9 C 36.9 C Heart Rate 82 82 Respiratory 18 18 Rate Blood Pressure 123/69 123/69 O2 Saturation 99 99 Oxygen O2 Source Room air - Labs Labs: Laboratory Tests 11/03/21 11/03/21 11/03/21 13:03 13:18 13:18 WBC 6.9 RBC 5.58 H Hgb 12.5 Hct 37.9 MCV 67.9 L MCH 22.4 L MCHC 33.0 RDW 18.3 H Plt Count 368 MPV 9.9 Neut # (Auto) 5.0 Lymph # (Auto) 1.4 L [place] # (Auto) 0.4 Eos # (Auto) 0.1 Baso # (Auto) 0.0 Absolute Nucleated RBC 0.00 Nucleated RBC % 0.0 Manual Slide Review Indicated Platelet Estimate NORMAL (130-450,000) Platelet Morphology NORMAL APPEARANCE RBC Morph Micro Appear 3+ MICROCYTOSIS Sodium 134 L Potassium 3.9 Chloride 103 Carbon Dioxide 25 Anion Gap 6.0 BUN 9 Creatinine 0.7 Estimated GFR (MDRD) 127 Glucose 108 H Calcium 8.8 Total Bilirubin 0.7 AST 17 ALT 14 Alkaline Phosphatase 46 Total Protein 7.5 Albumin 4.1 Globulin 3.4 Albumin/Globulin Ratio 1.2 Lipase 30 Urine Color YELLOW Urine Clarity CLEAR Urine pH 6.0 Ur Specific [place] 1.020 Urine Protein NEGATIVE Urine Glucose (UA) NEGATIVE Urine Ketones NEGATIVE Urine Occult Blood TRACE-INTA Urine Nitrite NEGATIVE Urine Bilirubin NEGATIVE Urine Urobilinogen 0.2 (NORMAL) Ur Leukocyte Esterase NEGATIVE Ur Microscopic Review NOT INDICATED Urine Culture Comments NOT INDICATED Urine HCG, Qual NEGATIVE PD MEDICAL DECISION MAKING - ED course Complexity details: reviewed results, re-evaluated patient, considered differential, d/w patient ED course: 21-year-old female with acute nausea is not she is administered Zofran and passes a fluid challenge. Departure - Departure Disposition: 01 Home, Self Care Clinical Impression: Gastroenteritis Condition: Stable Instructions: ED Gastroenteritis Vs Food Poison Follow-Up: SENDY MEZA DO [Primary Care Provider] - Prescriptions: Ondansetron Odt [Zofran] 4 mg TL Q6H PRN #10 tablet PRN Reason: Nausea / Vomiting Comments: Nascha, Today it looks like gastroenteritis and this is usually a self limiting process. The worry is dehydration and I have provided a script for some nausea medication e-scribed to [facility] in [place]. Discharge Date/Time: 11/03/21 14:20
== END 2021-11-03 14:20 | disposition home or self-care (01) ==
LOC: ED 12:20
DX: K52.9 Noninfective gastroenteritis and colitis, unspecified (principal)
CPT/HCPCS: 36415; 80053; 81003; 81025; 83690; 85025; 99283; Q0162; 81001; 87086